=== PATIENT | male | born 1970 | race African-American/Black ===

== ENCOUNTER 2018-09-10 04:41 | Emergency (ER) | payer SELFPAY ==
[~2018-09-10] VITALS: Ht 180.3 cm; Wt 136.0 kg
[~2018-09-10 04:41] MED LIST: FLUO20CA33 PO
[2018-09-10 08:50] LABS: BASOPHILS % 0.4 % (0.0-2.0); EOSINOPHILS % 0.6 % (0.0-5.0); HEMATOCRIT. 46.9 % (42.0-52.0); HEMOGLOBIN. 15.9 g/dL (14.0-18.0); LYMPHOCYTES % 16.9 % (20.0-50.0); MEAN CORPUSCULAR HEMOGLOBIN 30.5 pg (28.0-32.0); MEAN CORPUSCULAR VOLUME 89.9 fL (80.0-94.0); MEAN PLATELET VOLUME 7.2 fl (7.4-10.4); MONOCYTES % 5.3 % (2.0-8.0); NEUTROPHILS % 76.8 % (40.0-76.0); PLATELET 228 x1000/uL (130-400); RED BLOOD CELL COUNT 5.22 mill/uL (4.7-6.1); RED CELL DISTRIBUTION WIDTH 13.7 % (11.6-14.6)
[2018-09-10 08:57] LABS: CHLORIDE 106 mEq/L (98-107); INR 1.1
[2018-09-10 13:25] LABS: CLARITY URINE TURBID (CLEAR); COLOR URINE YELLOW (YELLOW); KETONES URINE 1+ (NEGATIVE); LEUKOCYTE ESTERASE URINE 1+ (NEGATIVE); NITRITE URINE NEGATIVE (NEGATIVE); OCCULT BLOOD URINE 1+ (NEGATIVE); PH URINE 7.5 (4.5-8.0); PROTEIN URINE 1+ (NEGATIVE); SPECIFIC GRAVITY URINE 1.021 (1.005-1.030); UROBILINOGEN URINE 0.2 E.U./dL (0.2-1.0)
[2018-09-10] MEDS ORDERED: CEFTRIAXONE 1 G PREMIX 50 ML IV ONE (13:30)
[2018-09-10] MEDS ORDERED: CEFTRIAXONE SODIUM 1 G/VIAL IM ONE (14:15)
[2018-09-10 14:28] VITALS: BP 144/76
== END 2018-09-10 14:27 | disposition home or self-care (01) ==
LOC: ER 04:41
DX: N20.0 Calculus of kidney (principal); R10.32 Left lower quadrant pain; F41.9 Anxiety disorder, unspecified; F32.9 Major depressive disorder, single episode, unspecified; Z98.890 Other specified postprocedural states; Z79.899 Other long term (current) drug therapy
CPT/HCPCS: 36415; 74176; 76870; 80053; 81003; 83690; 85025; 85610; 93976; 96372; 99284; J0696; Z7610

== ENCOUNTER 2018-09-16 05:00 | Emergency (ER) | payer MEDICAID ==
[~2018-09-16] VITALS: Ht 180.3 cm; Wt 137.0 kg
[2018-09-16] MEDS ORDERED: SODIUM CHLORIDE 0.9% 1,000 ML IV ONE (06:26)
[2018-09-16] MEDS ORDERED: KETOROLAC 30MG/ML VIAL IV STA (06:26)
[2018-09-16 06:48] LABS: BASOPHILS % 0.6 % (0.0-2.0); EOSINOPHILS % 1.8 % (0.0-5.0); HEMATOCRIT. 46.5 % (42.0-52.0); HEMOGLOBIN. 16.1 g/dL (14.0-18.0); MEAN CORPUSCULAR HEMOGLOBIN 31.2 pg (28.0-32.0); MEAN CORPUSCULAR VOLUME 90.1 fL (80.0-94.0); MEAN PLATELET VOLUME 7.6 fl (7.4-10.4); MONOCYTES % 6.5 % (2.0-8.0); NEUTROPHILS % 72.1 % (40.0-76.0); PLATELET 245 x1000/uL (130-400); RED BLOOD CELL COUNT 5.16 mill/uL (4.7-6.1); RED CELL DISTRIBUTION WIDTH 13.8 % (11.6-14.6)
[2018-09-16 06:52] LABS: CHLORIDE 104 mEq/L (98-107)
[2018-09-16 07:12] LABS: INR 1.1; PROTHROMBIN TIME 10.7 sec (9.1-11.1)
[2018-09-16] MEDS ORDERED: TAMSULOSIN HCL 0.4MG SR CAPSULE PO ONE (07:30)
[2018-09-16 07:49] VITALS: BP 142/85
[2018-09-16 08:01] LABS: CLARITY URINE CLEAR (CLEAR); COLOR URINE YELLOW (YELLOW); KETONES URINE NEGATIVE (NEGATIVE); LEUKOCYTE ESTERASE URINE 2+ (NEGATIVE); NITRITE URINE NEGATIVE (NEGATIVE); OCCULT BLOOD URINE TRACE (NEGATIVE); PH URINE 6.5 (4.5-8.0); PROTEIN URINE 1+ (NEGATIVE); SPECIFIC GRAVITY URINE 1.012 (1.005-1.030); UROBILINOGEN URINE 0.2 E.U./dL (0.2-1.0)
== END 2018-09-16 08:53 | disposition home or self-care (01) ==
LOC: ER 05:00
DX: R10.9 Unspecified abdominal pain (principal); K59.00 Constipation, unspecified; N39.0 Urinary tract infection, site not specified; N20.0 Calculus of kidney
CPT/HCPCS: 36415; 74176; 80053; 81003; 83690; 85025; 85610; 87086; 96374; 99284; J1885; J7030

== ENCOUNTER 2018-10-13 11:39 | Emergency (ER) | payer MEDICAID ==
[~2018-10-13] VITALS: Ht 180.3 cm; Wt 129.0 kg
[2018-10-13 15:09] LABS: BASOPHILS % 0.5 % (0.0-2.0); EOSINOPHILS % 1.4 % (0.0-5.0); HEMATOCRIT. 46.9 % (42.0-52.0); HEMOGLOBIN. 15.8 g/dL (14.0-18.0); LYMPHOCYTES % 20.1 % (20.0-50.0); MEAN CORPUSCULAR HEMOGLOBIN 30.7 pg (28.0-32.0); MEAN CORPUSCULAR VOLUME 90.8 fL (80.0-94.0); MEAN PLATELET VOLUME 7.5 fl (7.4-10.4); MONOCYTES % 4.7 % (2.0-8.0); NEUTROPHILS % 73.3 % (40.0-76.0); PLATELET 264 x1000/uL (130-400); RED BLOOD CELL COUNT 5.16 mill/uL (4.7-6.1)
[2018-10-13 15:15] LABS: CHLORIDE 104 mEq/L (98-107)
[2018-10-13 15:24] LABS: CLARITY URINE CLEAR (CLEAR); COLOR URINE YELLOW (YELLOW); KETONES URINE NEGATIVE (NEGATIVE); LEUKOCYTE ESTERASE URINE TRACE (NEGATIVE); NITRITE URINE NEGATIVE (NEGATIVE); OCCULT BLOOD URINE 1+ (NEGATIVE); PROTEIN URINE TRACE (NEGATIVE); SPECIFIC GRAVITY URINE 1.013 (1.005-1.030); UROBILINOGEN URINE 0.2 E.U./dL (0.2-1.0)
[2018-10-13] MEDS ORDERED: CLONIDINE 0.1MG TABLET PO ONE ×2 (16:45→19:15)
[2018-10-13] MEDS ORDERED: IOHEXOL-300 100 ML BOTTLE ONE (17:33)
[2018-10-13 19:56] VITALS: BP 154/101
== END 2018-10-13 20:26 | disposition home or self-care (01) ==
LOC: ER 11:39
DX: I88.9 Nonspecific lymphadenitis, unspecified (principal); N39.0 Urinary tract infection, site not specified; F41.9 Anxiety disorder, unspecified; I10 Essential (primary) hypertension; F32.9 Major depressive disorder, single episode, unspecified
CPT/HCPCS: 36415; 70491; 71045; 80053; 81003; 85025; 87086; 99284; Q9967

== ENCOUNTER 2018-11-01 04:58 | Emergency (ER) | payer SELFPAY ==
[~2018-11-01] VITALS: Ht 180.3 cm; Wt 137.0 kg
[2018-11-01 06:49] LABS: BASOPHILS % 0.5 % (0.0-2.0); EOSINOPHILS % 1.4 % (0.0-5.0); HEMATOCRIT. 48.3 % (42.0-52.0); HEMOGLOBIN. 16.5 g/dL (14.0-18.0); LYMPHOCYTES % 16.4 % (20.0-50.0); MEAN CORPUSCULAR HEMOGLOBIN 30.7 pg (28.0-32.0); MONOCYTES % 6.6 % (2.0-8.0); NEUTROPHILS % 75.1 % (40.0-76.0); PLATELET 240 x1000/uL (130-400); RED BLOOD CELL COUNT 5.36 mill/uL (4.7-6.1); RED CELL DISTRIBUTION WIDTH 13.8 % (11.6-14.6)
[2018-11-01 06:51] LABS: CHLORIDE 102 mEq/L (98-107)
[2018-11-01 06:52] LABS: INR 1.1; PROTHROMBIN TIME 10.9 sec (9.6-11.0)
[2018-11-01] MEDS ORDERED: KETOROLAC 30MG/ML VIAL IV STA (07:15)
[2018-11-01 07:43] VITALS: BP 136/95
[2018-11-01 07:47] LABS: CLARITY URINE CLOUDY (CLEAR); COLOR URINE YELLOW (YELLOW); KETONES URINE TRACE (NEGATIVE); LEUKOCYTE ESTERASE URINE 1+ (NEGATIVE); NITRITE URINE NEGATIVE (NEGATIVE); OCCULT BLOOD URINE TRACE (NEGATIVE); PH URINE 5.5 (4.5-8.0); PROTEIN URINE 1+ (NEGATIVE); SPECIFIC GRAVITY URINE 1.014 (1.005-1.030); UROBILINOGEN URINE 0.2 E.U./dL (0.2-1.0)
== END 2018-11-01 07:59 | disposition home or self-care (01) ==
LOC: ER 04:58
DX: N20.0 Calculus of kidney (principal); F41.9 Anxiety disorder, unspecified; F32.9 Major depressive disorder, single episode, unspecified; I10 Essential (primary) hypertension; Z87.440 Personal history of urinary (tract) infections
CPT/HCPCS: 36415; 74176; 80053; 81003; 83690; 85025; 85610; 96374; 99284; J1885; Z7610

== ENCOUNTER 2018-11-14 11:58 | Emergency (ER) | payer SELFPAY ==
[~2018-11-14] VITALS: Ht 180.3 cm; Wt 130.0 kg
[2018-11-14 13:55] VITALS: BP 163/111
== END 2018-11-14 14:05 | disposition home or self-care (01) ==
LOC: ER 11:58
DX: K60.2 Anal fissure, unspecified (principal); K64.8 Other hemorrhoids; K59.00 Constipation, unspecified; F41.9 Anxiety disorder, unspecified; F32.9 Major depressive disorder, single episode, unspecified; I10 Essential (primary) hypertension; Z88.8 Allergy status to other drugs, medicaments and biological substances
CPT/HCPCS: 99283

== ENCOUNTER 2020-03-11 03:17 | Emergency (ER) | payer SELFPAY ==
[~2020-03-11] VITALS: Ht 180.3 cm; Wt 122.0 kg
[2020-03-11] MEDS ORDERED: PREDNISONE 20MG TABLET PO ONE (03:45)
[2020-03-11] MEDS ORDERED: EPINEPHRINE 1:1000 1 MG/ML AMP INJ ONE (03:45)
[2020-03-11] MEDS ORDERED: DIPHENHYDRAMINE 50MG/ML VIAL IV ONE (03:45)
[2020-03-11] MEDS ORDERED: FAMOTIDINE 20MG TABLET PO ONE (03:45)
[2020-03-11 07:24] VITALS: BP 124/81
== END 2020-03-11 07:55 | disposition home or self-care (01) ==
LOC: ER 03:17
DX: T78.49XA Other allergy, initial encounter (principal); X58.XXXA Exposure to other specified factors, initial encounter; F41.9 Anxiety disorder, unspecified; F32.9 Major depressive disorder, single episode, unspecified; I10 Essential (primary) hypertension
CPT/HCPCS: 93005; 96374; 99285; J1200; J3490; J7512